=== PATIENT | male | born 1950 | race Asian ===

== ENCOUNTER 2018-06-15 06:21 | Observation (INO) | payer MEDICARE, OTHER ==
--- NOTE | 2018-06-13 14:48 | Diagnostic Imaging Report ---
EXAMINATION: CHEST 2 VIEWS INDICATION: \S\PRE OP \[id number] \S\1425 \S\DR ORDERS COMPARISON: None FINDINGS: PA and lateral views TUBES and LINES: None. LUNGS: Lungs are well inflated. Lungs are clear. There is no evidence of pneumonia or pulmonary edema. PLEURA: No pleural effusion or pneumothorax. HEART AND MEDIASTINUM: The left ventricle is prominent and may be due to dilatation or hypertrophy. Mildly tortuous thoracic aorta with associated moderate calcifications in the aortic arch. BONES AND SOFT TISSUES: Multilevel degenerative changes throughout the thoracic spine. Mild wedge compression deformity of several upper lumbar vertebral bodies. Multiple surgical clips overlying the left upper quadrant. UPPER ABDOMEN: No free air under the diaphragm. IMPRESSION: No acute thoracic abnormality. Signed by: Dr. Jillian Mccall M.D. on 06/13/2018 2:45 PM
[2018-06-13 15:17] LABS: BASOPHILS % 0.5 % (0.0-1.0); EOSINOPHILS # (AUTO) 0.1 (0.0-0.4); HEMATOCRIT 47.3 % (38.2-49.6); HEMOGLOBIN 16.3 g/dL (14.0-18.0); LYMPHOCYTES # (AUTO) 1.8 (1.0-3.2); MEAN CORPUSCULAR HEMOGLOBIN 31.2 pg (28-32); MEAN CORPUSCULAR HGB CONC 34.5 g/dL (31-35); MEAN CORPUSCULAR VOLUME 90.4 fL (81-99); MONOCYTES # (AUTO) 0.6 (0.2-0.8); NEUTROPHILS # (AUTO) 4.9 (2.1-6.9); NEUTROPHILS % 66.2 % (38.7-80.0); PLATELET COUNT 255 x10e3/uL (140-360); RED BLOOD COUNT 5.23 x10e6/uL (4.3-5.7); RED CELL DISTRIBUTION WIDTH 11.9 % (11.7-14.4)
[2018-06-13 15:30] LABS: INR 0.84; PROTHROMBIN TIME 12.3 seconds (11.9-14.5)
[2018-06-13 15:31] LABS: PARTIAL THROMBOPLASTIN TIME 29.9 seconds (23.8-35.5)
[2018-06-13 15:35] LABS: ANION GAP 15.9 mmol/L (8-16); BLOOD UREA NITROGEN 13 mg/dL (7-26); BUN/CREATININE RATIO 15 (6-25); CALCIUM 9.8 mg/dL (8.4-10.2); CARBON DIOXIDE 30 mmol/L (22-29); CHLORIDE 102 mmol/L (98-107); CREATININE, SERUM 0.88 mg/dL (0.72-1.25); EST GLOMERULAR FILTRATION RATE > 60 ML/MIN (60-); GLUCOSE 77 mg/dL (74-118); POTASSIUM 3.9 mmol/L (3.5-5.1); SODIUM 144 mmol/L (136-145)
[~2018-06-15] VITALS: Ht 157.5 cm; Wt 68.1 kg
[~2018-06-15 06:21] MED LIST: HYDROCHLOROTHIA25 MG; LOTREL 10-20 M1 EACH
[2018-06-15] MEDS ORDERED: BUPIVACAINE 0.5%/EPI 30 ML SDV INJ ONE (07:31)
[2018-06-15] MEDS ORDERED: GELATIN SPONGE 12-7MM ONE (07:31)
[2018-06-15] MEDS ORDERED: THROMBIN FOR SOLN 5,000 UNIT VIAL ONE (07:31)
[2018-06-15] MEDS ORDERED: BACITRACIN 50,000 UNIT VIAL ONE (07:31)
[2018-06-15] MEDS ORDERED: CEFAZOLIN SOD 1 GM VIAL ONE (08:12)
[2018-06-15] MEDS ORDERED: FENTANYL CITRATE/PF 100MCG/2 ML INJ ONE ×2 (10:45→18:20)
[2018-06-15] MEDS ORDERED: LACTATED RINGER'S 1,000 ML IV SCH (11:56)
[2018-06-15] MEDS ORDERED: ONDANSETRON HCL INJ 2 MG/ML VIAL IV PRN (12:00)
[2018-06-15] MEDS ORDERED: MAGNESIUM/ALUMINUM/SIMETHICONE 30 ML UDC PO PRN (12:00)
[2018-06-15] MEDS ORDERED: HYDROMORPHONE 2MG/ML 2 MG/ML ML IV PRN (12:00)
[2018-06-15] MEDS ORDERED: OXYCODONE/ACETAMINOPHEN 5-325 1 EACH TABLET PO PRN (12:00)
[2018-06-15] MEDS ORDERED: MORPHINE SULFATE 5 MG/ML VIAL IM PRN (12:00)
[2018-06-15] MEDS ORDERED: ACETAMINOPHEN 325 MG TAB PO PRN (12:00)
[2018-06-15] MEDS ORDERED: PROMETHAZINE HCL (IM) 25 MG/ML VIAL IM PRN (12:00)
[2018-06-15] MEDS ORDERED: ZOLPIDEM TARTRATE 5 MG TAB PO PRN (12:00)
[2018-06-15] MEDS ORDERED: CARISOPRODOL 350 MG TAB PO PRN (12:00)
[2018-06-15 12:24] VITALS: BP 105/52
--- NOTE | 2018-06-15 12:33 | Operative Report ---
DATE OF PROCEDURE: June 15, 2018 PREOPERATIVE DIAGNOSIS: Right L5-S1 intraforaminal disk herniation with L5 radiculopathy, M51.17. POSTOPERATIVE DIAGNOSIS: Right L5-S1 intraforaminal disk herniation with L5 radiculopathy, M51.17. PROCEDURE PERFORMED: Right L5-S1 laminotomy, medial facetectomy, and microsurgical diskectomy, 69290. ANESTHESIA: General. INDICATIONS: The patient is a 68-year-old man who presents with a right L5-S1 lateral and intraforaminal disk herniation symptomatic with L5 radiculopathy. He was taken to the operating room for microsurgical decompression of the L5 nerve root. PROCEDURE: After the induction of general anesthesia, the patient was placed on the operating table in prone position over a Alexei frame. The lumbar region was prepped and draped in sterile fashion. A preoperative x-ray was obtained. A small paramedian incision was created on right side of L5-S1. The lumbar fascia was opened to the right of midline, and a subperiosteal dissection was carried out to expose the L5 and S1 laminae and the medial aspect of the L5-S1 facet joint. A 2nd x-ray confirmed correct localization. The operating microscope was brought in. A high-speed drill equipped with a carola bur was used to drill the inferior two-thirds of the lamina of L5 and the medial aspect of the inferior articular process of L5. The ligamentum flavum was resected, and the dural sac and the traversing S1 nerve root were exposed. The axilla of the L5 nerve root was exposed. The herniated disk material was found between the 2 nerve roots and was delivered out with a micro ball probe that was pointed laterally into the L5 neural foramen. This was retrieved with a micropituitary rongeur and removed. This maneuver was repeated several times with a larger ball probe pointed laterally, and additional fragments of disk were retrieved and removed from the L5 neural foramen until no further resistance was encountered to the ball probe. The opening into the bulging annulus of the L5-S1 disk was then enlarged with a number 11 blade, and the contents of the L5-S1 disk were thoroughly evacuated with curettes and pituitary rongeurs. Excellent decompression was thus achieved. The wound was copiously irrigated with Bacitracin solution. Meticulous hemostasis was secured. The retractor was removed. The lumbar fascia was closed with 0 Vicryl sutures. Subcutaneous layer was closed with 2-0 Vicryl sutures. The skin was closed with 3-0 Monocryl sutures in a subcuticular fashion. Steri-Strips and a dressing were applied. The patient was awakened, extubated, and taken to the postanesthesia care unit in stable condition. No intraoperative complications were encountered. Estimated blood loss was 10 mL. Job#: [id number] EV
[2018-06-15] MEDS ORDERED: CEFAZOLIN SOD 1 GM/D5W 50ML 50 ML IV SCH (14:00)
[2018-06-15] MEDS: CEFAZOLIN SOD 1 GM VIAL IV SCH ×2 (14:26→21:50)
[2018-06-15 14:52] VITALS: BP 105/52
[2018-06-15 16:14] VITALS: BP 119/64
[2018-06-15] MEDS ORDERED: LIDOCAINE HCL 2% LOCAL INJ 5 ML SDV VIAL INJ ONE (17:59)
[2018-06-15] MEDS ORDERED: ROCURONIUM BROMIDE 10 MG/ML 5ML VIAL ONE (17:59)
[2018-06-15] MEDS ORDERED: LIDOCAINE HCL 2% JELLY 5 ML TUBE ONE (17:59)
[2018-06-15] MEDS ORDERED: DEXAMETHASONE SOD PHOS INJ 4 MG/ML VIAL ONE (17:59)
[2018-06-15] MEDS ORDERED: NEOSTIGMINE 5 MG/5ML SYR ONE (17:59)
[2018-06-15] MEDS ORDERED: GLYCOPYRROLATE INJ 1MG/ 5 ML SYR ONE (17:59)
[2018-06-15] MEDS ORDERED: ONDANSETRON HCL INJ 2 MG/ML VIAL ONE (17:59)
[2018-06-15] MEDS ORDERED: SEVOFLURANE INHAL SOLN 250 ML PEN BTL ONE (17:59)
[2018-06-15] MEDS ORDERED: PROPOFOL IV EMULSION 10 MG/ML 20 ML VIAL ONE (17:59)
[2018-06-15] MEDS ORDERED: MIDAZOLAM HCL 2 MG/2 ML VIAL ONE (18:20)
[2018-06-15] MEDS ORDERED: AMLODIPINE-BEN1 EACH PO (19:46)
[2018-06-15 20:00] VITALS: BP 130/66
[2018-06-15] MEDS ORDERED: BENAZEPRIL PO (20:01)
[2018-06-15] MEDS ORDERED: AMLODIPINE PO (20:01)
[2018-06-15] MEDS: BENAZEPRIL HCL 10 MG TAB PO SCH (21:00)
[2018-06-15] MEDS: AMLODIPINE BESYLATE 5 MG TAB PO SCH (21:00)
[2018-06-15] MEDS ORDERED: BENAZEPRIL PO SCH (22:00)
[2018-06-15] MEDS ORDERED: AMLODIPINE PO SCH (22:00)
[2018-06-16] VITALS: BP 136/66
[2018-06-16 04:00] VITALS: BP 127/69
[2018-06-16] MEDS: CEFAZOLIN SOD 1 GM VIAL IV SCH (06:00)
[2018-06-16 08:12] VITALS: BP 129/66
[2018-06-16] MEDS ORDERED: AMLODIPINE BESYLATE 10 MG TAB PO SCH (09:00)
[2018-06-16] MEDS ORDERED: HYDROCHLOROTHIAZIDE 25 MG TAB PO SCH (09:00)
[2018-06-16] MEDS: AMLODIPINE BESYLATE 5 MG TAB PO SCH (09:00)
[2018-06-16] MEDS: BENAZEPRIL HCL 10 MG TAB PO SCH (09:00)
[2018-06-16 09:35] VITALS: BP 129/66
[2018-06-16] MEDS ORDERED: NORCO 7.5-3251 EACH PO (10:33)
--- OUTSIDE RECORDS SUMMARY | 2018-06-20 12:55 | XMS REPORT ---
[facility] Address Unknown Phone Unavailable Care Team Providers Care Duct Layer Supervisor Name Role Phone ED OWEN Unavailable Unavailable Problems This patient has no known problems. Allergies, Adverse Reactions, Alerts This patient has no known allergies or adverse reactions. Medications This patient has no known medications. Results Test Description Test Time Test Comments Text Results Atomic Results Result Comments CHEST 2 VIEWS 2018-06-13 14:44:00 [place] [address] Patient Name: JENNYFER CRUZ MR #: [id number] : 1950 Age/Sex: 68/M Req #: [id number] Adm Physician: Ordered by: ED OWEN MD Report #: [id number] Location: OR Room/Bed: Procedure: [id number] DX/CHEST 2 VIEWS Exam Date: 06/13/18 Exam Time: 1425 REPORT STATUS: Signed EXAMINATION: CHEST 2 VIEWS INDICATION: COMPARISON: None FINDINGS: PA and lateral views TUBES and LINES: None. LUNGS: Lungs are well inflated. Lungs are clear. There is no evidence of pneumonia or pulmonary edema. PLEURA: No pleural effusion or pneumothorax. HEART AND MEDIASTINUM: The left ventricle is prominent and may be due to dilatation or hypertrophy. Mildly tortuous thoracic aorta with associated moderate calcifications in the aortic arch. BONES AND SOFT TISSUES: Multilevel degenerative changes throughout the thoracic spine. Mild wedge compression deformity of several upper lumbar vertebral bodies. Multiple surgical clips overlying the left upper quadrant. UPPER ABDOMEN: No free air under the diaphragm. IMPRESSION: No acute thoracic abn ormality. Signed by: Dr. Luli Hewitt M.D. on 06/13/2018 2:45 PM Dictated By: LULI HEWITT MD 1440 Transcribed By: LETTY on 06/13/18 1449 COPY TO: ED OWEN MD
--- OUTSIDE RECORDS SUMMARY | 2018-06-20 12:55 | XMS REPORT | CCD ---
Author Author Auto Generated Organization [facility] Address Unknown Phone Unavailable Care Team Providers Care Parking Meter Installer Name Role Phone Jorge Martinez Nestor CP Jasmine Murray PP Allergies, Adverse Reactions, Alerts Substance Reaction Status aspirin Active ibuprofen Active Problem List Condition Effective Dates Status Exploratory laparotomy 11/03/2010 Active HTN - Hypertension Active Partial gastrectomy 11/03/2010 Active Perforated ulcer 11/03/2010 Active Medications Medication Instructions Start Date End Date Status tuberculin purified 5 unit, 0.1 ml, Route: INTRADERM, 10/27/2006 10/27/2006 Completed protein derivative Drug form: INJ, ONCE, Start date: 10/27/06 21:04:00, Stop date: 10/27/06 21:04:00 Immunizations Vaccine Date Status tuberculin purified protein derivative 10/27/2006 Auth (Verified)
--- OUTSIDE RECORDS SUMMARY | 2018-06-20 12:55 | XMS REPORT | Continuity of Care Document ---
Author Author [facility] Address Unknown Phone Unavailable Problems Problem Status Onset Date Classification Date Reported Comments Source LOW BACK PAIN Active 11/15/2012 [facility] Exploratory laparotomy Active 11/03/2010 Problem 06/13/2016 [facility] Partial gastrectomy Active 11/03/2010 Problem 06/13/[address] [facility] Perforated ulcer Active 11/03/2010 Problem 06/13/2016 [facility] Exploratory laparotomy Active 11/03/2010 Problem 11/17/2012 [facility] Partial gastrectomy Active 11/03/2010 Problem 11/17/2012 [facility] Perforated ulcer Active 11/03/2010 Problem 11/17/2012 [facility] HTN - Hypertension Active Problem 06/13/[address] [facility] HTN - Hypertension Active Problem 11/17/2012 [facility] BACK PAIN Active [facility] BACK HIP PAIN Active [facility] Medications Medication Details Route Status Patient Instructions Ordering Provider Order Date Source tuberculin purified protein derivative 5 unit, 0.1 ml, Route: INTRADERM, Drug form: INJ, ONCE, Start date: 10/27/06 21:04:00, Stop date: 10/27/06 21:04:00 INTRADERM No Longer Active Mougouris 10/28/2006 [facility] Allergies, Adverse Reactions, Alerts Substance Category Reaction Severity Reaction type Status Date Reported Comments Source aspirin Assertion Drug allergy Active [facility] ibuprofen Assertion Drug allergy Active [facility] Immunizations Immunization Date Given Site Status Last Updated Comments Source tuberculin purified protein derivative 10/28/2006 Right lower forearm completed Tatyana [facility] tuberculin purified protein derivative 10/28/2006 completed Tatyana [facility] Results Order Name Results Value Reference Range Date Interpretation Comments Source Vital Signs Vital Sign Value Date Comments Source Encounters Location Location Details Encounter Type Encounter Number Reason For Visit Attending Provider ADM Date DC Date Status Source [facility] [id number] LOW BACK PAIN CLARA GAN 11/15/2012 Active [facility] [id number] Christopher Harrisonng Geovani 04/08/2016 05/08/2016 [facility] [id number] Christopher Olivo 05/12/2016 06/11/[address] [facility] Procedures Procedure Code Date Perfomer Comments Source
--- OUTSIDE RECORDS SUMMARY | 2018-06-20 12:55 | XMS REPORT | Summary of Care ---
Author Author [facility] Address Unknown Phone Unavailable Encounter HQ Encntr_alias(FIN) [id number] Date(s): 05/12/16 - 06/10/16 [facility] Discharge Disposition: Home or Self Care Attending Physician: Christopher Costello MD Vital Signs No data available for this section Problem List Condition Effective Dates Status Health Status Informant Exploratory 11/03/10 Active laparotomy(Confirmed ) HTN - Active Hypertension(Confirm ed) Partial 11/03/10 Active gastrectomy(Confirme d) Perforated 11/03/10 Active ulcer(Confirmed) Allergies, Adverse Reactions, Alerts Substance Reaction Severity Status aspirin Active ibuprofen Active Medications No data available for this section Results No data available for this section Immunizations Given and Recorded Vaccine Date Status Refusal Reason tuberculin purified protein derivative 10/27/06 Given Procedures No data available for this section Social History Social History Type Response Assessment and Plan No data available for this section
--- OUTSIDE RECORDS SUMMARY | 2018-06-20 12:55 | XMS REPORT | Summary of Care ---
Author Author [facility] Address Unknown Phone Unavailable Encounter HQ Encntr_alias(FIN) [id number] Date(s): 04/08/16 - 05/07/16 [facility] Discharge Disposition: Home or Self Care Attending [...]
== END 2018-06-16 11:00 | disposition home or self-care (01) ==
LOC: OR 06:21 → PACU V 11:58 → MED/SURG 12:08
PROVIDERS: ADMIT Neurological Surgery; ATTEND Neurological Surgery
DX: M51.17 Intervertebral disc disorders with radiculopathy, lumbosacral region (principal); I10 Essential (primary) hypertension; Z85.72 Personal history of non-Hodgkin lymphomas; Z01.810 Encounter for preprocedural cardiovascular examination; Z01.812 Encounter for preprocedural laboratory examination; Z01.811 Encounter for preprocedural respiratory examination
CPT/HCPCS: 36415; 63047; 71046; 72020; 80048; 85025; 85610; 85730; 86850; 86900; 88304; 93005; G0378 ×2; J0690 ×2; J1100; J2001 ×2; J2250; J2405; J3490